=== PATIENT | female | born 1945 | race Caucasian/White ===

== ENCOUNTER 2017-01-17 15:15 | Outpatient (CLI) | payer MEDICARE, BC | END 2017-01-17 15:16 | disposition home or self-care (01) | DX: Z51.5 Encounter for palliative care (principal); E46 Unspecified protein-calorie malnutrition; R11.2 Nausea with vomiting, unspecified; J44.9 Chronic obstructive pulmonary disease, unspecified; R62.7 Adult failure to thrive; G89.29 Other chronic pain; L89.151 Pressure ulcer of sacral region, stage 1; L89.312 Pressure ulcer of right buttock, stage 2; K59.00 Constipation, unspecified; F41.0 Panic disorder [episodic paroxysmal anxiety]; M34.1 CR(E)ST syndrome; I69.311 Memory deficit following cerebral infarction; I73.00 Raynaud's syndrome without gangrene; Z66 Do not resuscitate; Z79.891 Long term (current) use of opiate analgesic; Z74.01 Bed confinement status; Z99.81 Dependence on supplemental oxygen; Z79.52 Long term (current) use of systemic steroids; Z79.899 Other long term (current) drug therapy; Z79.82 Long term (current) use of aspirin; Z87.891 Personal history of nicotine dependence; Z87.898 Personal history of other specified conditions; Z87.01 Personal history of pneumonia (recurrent) ==

== ENCOUNTER 2017-01-24 14:00 | Outpatient (CLI) | payer MEDICARE, BC | END 2017-01-24 14:01 | disposition home or self-care (01) | DX: Z51.5 Encounter for palliative care (principal); R63.0 Anorexia; M54.5 Low back pain; J44.9 Chronic obstructive pulmonary disease, unspecified; K59.00 Constipation, unspecified; L89.322 Pressure ulcer of left buttock, stage 2; M34.1 CR(E)ST syndrome; R11.0 Nausea; Z91.14 Patient's other noncompliance with medication regimen; Z79.891 Long term (current) use of opiate analgesic; Z99.81 Dependence on supplemental oxygen; Z79.82 Long term (current) use of aspirin; R32 Unspecified urinary incontinence; Z99.3 Dependence on wheelchair; M25.50 Pain in unspecified joint; R51 Headache; R25.1 Tremor, unspecified; F41.9 Anxiety disorder, unspecified; R53.83 Other fatigue; R62.7 Adult failure to thrive; Z66 Do not resuscitate ==

== ENCOUNTER 2017-02-02 19:30 | Outpatient (CLI) | payer MEDICARE, BC | END 2017-02-02 19:31 | disposition EMS.NT | LOC: EMS 19:30 | PROVIDERS: ATTEND Surgery | DX: R41.82 Altered mental status, unspecified (principal) ==